=== PATIENT | male | born 1980 | race Caucasian/White ===

== ENCOUNTER 2018-11-18 12:55 | Emergency (ER) | payer BC, MEDICAID ==
[~2018-11-18] VITALS: Ht 167.6 cm; Wt 84.8 kg
[~2018-11-18 12:55] MED LIST: NORPTMEDS CO
[2018-11-18 15:43] LABS: Basophils # (auto) 0.1 uL; Basophils % (auto) 0.8 % (0.0-2.0); Eosinophils # (auto) 0 uL; Mean Corpuscular Hgb Conc. 31.9 g/dL (32.0-36.0); Monocytes # (auto) 1.9 uL; Nucleated Red Blood Cells % 0.1 %
[2018-11-18 15:45] LABS: Eosinophils % (auto) 0.1 % (0.0-7.0); Hematocrit 40.3 % (41.0-53.0); Hemoglobin 12.9 g/dL (13.5-17.5); Lymphocytes # (auto) 2.2 uL; Lymphocytes % (auto) 13.2 % (10.0-50.0); Mean Corpuscular Hemoglobin 21.6 pg (28.0-32.0); Mean Corpuscular Volume 67.7 fL (80.0-100.0); Monocytes % (auto) 11.9 % (0.0-12.0); Platelet Count (auto) 356 10^3/uL (140-450); Red Blood Cells 5.96 10^6/uL (4.5-5.90); Red Cell Distribution Width 18.5 % (11.8-14.3); White Blood Cell 16.3 10^3/uL (4.4-10.8)
[2018-11-18 16:00] LABS: BUN/Creatinine Ratio 12.6; Calcium 9.5 mg/dL (8.5-10.1)
[2018-11-18 16:03] LABS: Bilirubin, Total 0.7 mg/dL (0.2-1.0); Total Protein 9.6 g/dL (6.4-8.2)
[2018-11-18 16:19] LABS: Potassium 3.6 mmol/L (3.5-5.1)
[2018-11-18] MEDS ORDERED: CLINDAMYCIN 600MG IV 50 ML IV ONE (17:30)
[2018-11-18] MEDS ORDERED: cefTRIAXone 1GM/50ML D5W 50 ML IV ONE (17:30)
[2018-11-18] MEDS ORDERED: SODIUM CHLORIDE 0.9% 1,000 ML IV ONE ×3 (17:30→21:00)
[2018-11-18] MEDS ORDERED: HYDROcodone-ACET 10/325MG TAB PO ONE (18:30)
[2018-11-18 18:41] LABS: Lactic Acid w/Reflex 2.8 mmol/L (0.4-2.0)
[2018-11-18] MEDS ORDERED: ACETAMINOPHEN 325 MG TAB PO ONE (19:00)
[2018-11-18 22:15] VITALS: BP 122/77
== END 2018-11-18 22:43 | disposition home or self-care (01) ==
LOC: ER 12:55
DX: L03.115 Cellulitis of right lower limb (principal); A41.9 Sepsis, unspecified organism; J45.909 Unspecified asthma, uncomplicated; I10 Essential (primary) hypertension; E11.9 Type 2 diabetes mellitus without complications
CPT/HCPCS: 36415; 73700; 80053; 82962; 83605; 85025; 87040; 94761; 96365; 96366; 96368; 99285; J0696; J3490; J7030

== ENCOUNTER 2024-10-27 10:38 | Inpatient (IN) | payer BC, MEDICAID ==
[~2024-10-27] VITALS: Ht 167.6 cm; Wt 83.9 kg
[2024-10-27 12:00] LABS: Monocytes # (auto) 1.2 10 ^3/uL (0-1.3); Neutrophils # (auto) 8.2 10 ^3/uL (1.6-8.6); Nucleated Red Blood Cells % 0.1 %; Red Cell Distribution Width 15.1 % (11.8-14.3)
[2024-10-27 12:02] LABS: Basophils # (auto) 0.1 10 ^3/uL (0-0.2); Basophils % (auto) 0.5 % (0.0-2.0); Chloride 102 mmol/L (98-107); Eosinophils # (auto) 0 10 ^3/uL (0-0.8); Eosinophils % (auto) 0.4 % (0.0-7.0); Hematocrit 43.7 % (41.0-53.0); Lymphocytes # (auto) 1.9 10 ^3/uL (0.4-5.4); Lymphocytes % (auto) 16.6 % (10.0-50.0); Mean Corpuscular Hemoglobin 24.2 pg (28.0-32.0); Mean Corpuscular Volume 75.6 fL (80.0-100.0); Monocytes % (auto) 10.3 % (0.0-12.0); Neutrophils % (auto) 72.2 % (37.0-80.0); Platelet Count (auto) 184 10^3/uL (140-450); Potassium 3.9 mmol/L (3.5-5.1); Red Blood Cells 5.78 10^6/uL (4.5-5.90); White Blood Cell 11.4 10^3/uL (4.4-10.8)
[2024-10-27 12:03] LABS: Anion Gap 10 (5-15); Calcium 9.9 mg/dL (8.7-10.4); Carbon Dioxide 24 mmol/L (20-31)
[2024-10-27 12:04] LABS: Sodium 136 mmol/L (136-145)
[2024-10-27 12:08] LABS: BUN/Creatinine Ratio 12.2 (10.0-20.0); Blood Urea Nitrogen 11 mg/dL (9-23)
[2024-10-27 12:09] LABS: Glucose 269 mg/dL (74-106)
[2024-10-27] MEDS ORDERED: VANCOMYCIN PER PHARMACY 0 MG IV SCH (13:00)
--- NOTE | 2024-10-27 13:01 | ED.PDOC ---
History of Present Illness(SKN HPI Comments This is a pleasant 44-year-old gentleman with a pertinent MHx of diabetes who was currently on glipizide and metformin who presents with a chief complaint of erythema, warmth, pain to the right lower extremity predominantly located to the right calf region. Symptoms started on Friday (three days ago) near the right groin and patient reports redness descended down the right lower extremity. Patient then went to [facility] and was discharged same day on amoxicillin and he is currently on day three however patient reports no improvement. Complains of pain fevers chills that are worse at bedtime. Unable to get adequate relief with [id number] Tylenol Motrin. Chief Complaint: Cellulitis Time Seen by MD: 10:53 Primary Care Provider: NONE History of Present Illness: Nurses Notes, Medications, Allergies Allergies: Coded Allergies: NO KNOWN ALLERGIES (Unverified , 09/14/13) Home Meds Reported Medications Glipizide (Glipizide) 5 Mg Tab, 1 TAB PO BID, #60 TAB 3 Refills 10/27/24 No Reported Medication (NO REPORTED MEDICATION) Ea, 0 CO UNK, EA PATIENT HAS NO REPORTED MEDICATIONS 09/14/13 Information Source: Patient Mode of Arrival: Ambulatory Past Medical History PAST MEDICAL HISTORY: Asthma Family History Family History: No family hx of DM, No family hx of HTN Social History Smoker: Non-Smoker Alcohol: Rarely Drugs: Denies Drug Use Lives In: Home All Other Systems: Reviewed and Negative (Per HPI) Physical Exam General Appearance: No Apparent Distress, Normal HEENT: Normal ENT Inspection, Pharynx Normal, TMs Normal Neck: Full Range of Motion, Non-Tender, Normal, Normal Inspection Respiratory: Chest Non-Tender, Lungs Clear, No Accessory Muscle Use, No Respiratory Distress, Normal Breath Sounds Cardiovascular: No Edema, No JVD, No Murmur, No Gallop, Normal Peripheral Pulses, Regular Rate/Rhythm Breast Exam: Deferred Gastrointestinal: No Organomegaly, Non Tender, No Pulsatile Mass, Normal Bowel Sounds, Soft Genitalia: Deferred Pelvic: Deferred Rectal: Deferred Extremities: No calf tenderness, Normal capillary refill, Normal inspection, Normal range of motion, Non-tender, No pedal edema Musculoskeletal : Apperance: Normal Neurologic: Alert, 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 Was a procedure done?: No Images 1 - Fever, warmth, tenderness to palpation. Differential Diagnosis (INTG) Differential Diagnosis: Cellulitis, Other X-Ray, Labs, Meds, VS Vital Signs Date Time Temp Pulse Resp B/P (MAP) Pulse Ox O2 Delivery O2 Flow Rate FiO2 10/27/24 11:22 99.1 102 18 133/93 (106) 97 99.1 Lab Test 10/27/24 11:35 Range/Units White Blood Count 11.4 H 4.4-10.8 10^3/uL Red Blood Count 5.78 4.5-5.90 10^6/uL Hemoglobin 14.0 13.5-17.5 g/dL Hematocrit 43.7 41.0-53.0 % Mean Corpuscular Volume 75.6 L 80.0-100.0 fL Mean Corpuscular Hemoglobin 24.2 L 28.0-32.0 pg Mean Corpuscular Hemoglobin Concent 32.0 32.0-36.0 g/dL Red Cell Distribution Width 15.1 H 11.8-14.3 % Platelet Count 184 140-450 10^3/uL Mean Platelet Volume 8.5 6.9-10.8 fL Neutrophils (%) (Auto) 72.2 37.0-80.0 % Lymphocytes (%) (Auto) 16.6 10.0-50.0 % Monocytes (%) (Auto) 10.3 0.0-12.0 % Eosinophils (%) (Auto) 0.4 0.0-7.0 % Basophils (%) (Auto) 0.5 0.0-2.0 % Neutrophils # (Auto) 8.2 1.6-8.6 10 ^3/uL Lymphocytes # (Auto) 1.9 0.4-5.4 10 ^3/uL Monocytes # (Auto) 1.2 0-1.3 10 ^3/uL Eosinophils # (Auto) 0 0-0.8 10 ^3/uL Basophils # (Auto) 0.1 0-0.2 10 ^3/uL Nucleated Red Blood Cells 0.1 % Sodium Level 136 136-145 mmol/L Potassium Level 3.9 3.5-5.1 mmol/L Chloride Level 102 98-107 mmol/L Carbon Dioxide Level 24 20-31 mmol/L Anion Gap 10 5-15 Blood Urea Nitrogen 11 9-23 mg/dL Creatinine 0.90 0.700-1.30 mg/dL Glomerular Filtration Rate Calc 108 >90 mL/min BUN/Creatinine Ratio 12.2 10.0-20.0 Serum Glucose 269 H 74-106 mg/dL Calcium Level 9.9 8.7-10.4 mg/dL X-Ray, Labs, Meds, VS Comment The patient presents with s/s consistent with cellulitis Patient failed outpatient treatment The patient's workup reveals that the patient needs further evaluation and/or treatment for the above medical conditions. Patient verbalized understanding of the above and is awaiting further evaluation by the admitting service. Case discussed with medical record consultant of the day for admission and ED evaluation. IV Hep-Lock ordered. Rocephin per Pharmacy. Morphine X 1. Time of 1ST Reevaluation: 12:59 Reevaluation 1ST: Improved Patient Education/Counseling: Diagnosis, Treatment Family Education/Counseling: Diagnosis, Treatment Departure 1 Departure Time of Disposition: 13:00 Impression: Primary Impression: Cellulitis of right leg Disposition: ADMITTED INPATIENT Condition: Serious Critical Care Note Critical Care Time?: No Stability Stability form required: No Heart Score Heart Score: Heart Score Response (Comments) Value History N/A 0 EKG N/A 0 Age N/A 0 Risk Factors N/A 0 Troponin N/A 0 Total 0 DORINA COHEN NP Oct 27, 2024 13:00
[2024-10-27] MEDS ORDERED: ONDANSETRON HCL 4 MG/2 ML VIAL IV PRN (15:00)
[2024-10-27] MEDS ORDERED: ACETAMINOPHEN 325 MG TAB PO PRN (15:00)
[2024-10-27] MEDS ORDERED: GLIP5TAB21 PO (15:00)
[2024-10-27] MEDS ORDERED: DOCUSATE SOD 100 MG CAP PO PRN (15:00)
[2024-10-27] MEDS ORDERED: DEXTROSE (50%) 50ML SYRG IV PRN (15:15)
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
--- NOTE | 2024-10-27 15:35 | DVH ---
Right lower extremity venous duplex Clinical History: R/o dvt Comparison: None Technique: Duplex Doppler evaluation of the deep venous system of the right lower extremity from the common femo ral vein to the popliteal vein including color Doppler and spectral/pulsed waveform analysis was perf ormed. Findings: The common femoral vein demonstrates appropriate compressibility and waveform variability. There is compressibility/patency of the great saphenous vein at the proximal thigh. The femoral vein demonstrates appropriate compressibility and waveform variability. The deep femoral vein demonstrates appropriate compressibility and waveform variability. The popliteal vein demonstrates appropriate compressibility and waveform variability. There is normal compressibility at the tibioperoneal trunk. Impression: No right femoropopliteal venous thrombosis.
[2024-10-27] MEDS: VANCOMYCIN 1GM/200ML PM 200 ML IV SCH (15:56)
[2024-10-27] MEDS: MORPHINE SULFATE 4 MG/ML SYR/VIAL IV ONE (16:05)
[2024-10-27 16:33] VITALS: PULSE 85; RESP 19; O2SAT 96
[2024-10-27] MEDS: ACCU-CHEK COMFORT CURVE STRIP VI SCH (17:50)
[2024-10-27] MEDS: InsuLIN REG 1unit/0.01ml Soln (100units/ml) SC SCH ×2 (18:10→23:05)
[2024-10-27] MEDS: glipiZIDE 5 MG TAB PO SCH (23:04)
[2024-10-27] MEDS: HYDROcodone-ACET 5/325MG TAB PO PRN (23:18)
[2024-10-28] VITALS (8 sets, daily range): BP systolic 123–136; BP diastolic 60–88; PULSE 82–94; RESP 16–19; TEMP 98.4–99; O2SAT 93–96
[2024-10-28 06:48] LABS: Alanine Aminotransferase 29 U/L (7-40); Albumin 4.2 g/dL (3.2-4.8); Alkaline Phosphatase 63 U/L (46-116); Anion Gap 9 (5-15); Aspartate Aminotransferase 17 U/L (13-40); BUN/Creatinine Ratio 15.9 (10.0-20.0); Basophils # (auto) 0 10 ^3/uL (0-0.2); Basophils % (auto) 0.4 % (0.0-2.0); Blood Urea Nitrogen 14 mg/dL (9-23); Calcium 9.4 mg/dL (8.7-10.4); Carbon Dioxide 22 mmol/L (20-31); Chloride 104 mmol/L (98-107); Eosinophils # (auto) 0.2 10 ^3/uL (0-0.8); Hemoglobin 13.1 g/dL (13.5-17.5); Lymphocytes # (auto) 1.9 10 ^3/uL (0.4-5.4); Potassium 3.5 mmol/L (3.5-5.1); Total Protein 7.1 g/dL (5.7-8.2)
[2024-10-28 06:49] LABS: Bilirubin, Total 0.7 mg/dL (0.2-1.0); Glucose 227 mg/dL (74-106); Sodium 135 mmol/L (136-145)
[2024-10-28 06:53] LABS: Eosinophils % (auto) 1.9 % (0.0-7.0); Hematocrit 41.3 % (41.0-53.0); Lymphocytes % (auto) 20.1 % (10.0-50.0); Mean Corpuscular Hemoglobin 24.1 pg (28.0-32.0); Mean Corpuscular Hgb Conc. 31.7 g/dL (32.0-36.0); Mean Corpuscular Volume 75.9 fL (80.0-100.0); Monocytes # (auto) 0.9 10 ^3/uL (0-1.3); Monocytes % (auto) 10.1 % (0.0-12.0); Neutrophils # (auto) 6.3 10 ^3/uL (1.6-8.6); Neutrophils % (auto) 67.5 % (37.0-80.0); Nucleated Red Blood Cells % 0.1 %; Platelet Count (auto) 191 10^3/uL (140-450); Red Blood Cells 5.45 10^6/uL (4.5-5.90); White Blood Cell 9.3 10^3/uL (4.4-10.8)
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
[2024-10-28] MEDS ORDERED: ALBUTEROL SULF 2.5 MG/0.5ML(0.5%) NEB SOLN NEB PRN (13:00)
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
[2024-10-29] VITALS (9 sets, daily range): BP systolic 124–149; BP diastolic 77–93; PULSE 74–85; RESP 14–19; TEMP 97.8–98.3; O2SAT 92–97
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
[2024-10-29] MEDS: VANCOMYCIN 1.25GM/250ML 250 ML IV SCH (15:49)
[2024-10-30] VITALS (9 sets, daily range): BP systolic 108–157; BP diastolic 70–92; PULSE 72–84; RESP 16–19; TEMP 97.6–98.2; O2SAT 94–96
[2024-10-30 05:56] LABS: Eosinophils # (auto) 0.4 10 ^3/uL (0-0.8); Monocytes # (auto) 0.8 10 ^3/uL (0-1.3); Neutrophils # (auto) 5.2 10 ^3/uL (1.6-8.6); Nucleated Red Blood Cells % 0.1 %
[2024-10-30 05:59] LABS: Basophils # (auto) 0.1 10 ^3/uL (0-0.2); Eosinophils % (auto) 4.5 % (0.0-7.0); Hematocrit 38.2 % (41.0-53.0); Hemoglobin 12.3 g/dL (13.5-17.5); Lymphocytes % (auto) 23.9 % (10.0-50.0); Mean Corpuscular Hemoglobin 24.4 pg (28.0-32.0); Mean Corpuscular Hgb Conc. 32.2 g/dL (32.0-36.0); Mean Corpuscular Volume 75.7 fL (80.0-100.0); Monocytes % (auto) 9.8 % (0.0-12.0); Neutrophils % (auto) 60.8 % (37.0-80.0); Platelet Count (auto) 262 10^3/uL (140-450); Red Blood Cells 5.05 10^6/uL (4.5-5.90); Red Cell Distribution Width 14.7 % (11.8-14.3); White Blood Cell 8.5 10^3/uL (4.4-10.8)
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
[2024-10-31] VITALS (8 sets, daily range): BP systolic 119–154; BP diastolic 68–97; PULSE 73–81; RESP 15–18; TEMP 97.2–98.7; O2SAT 92–97
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
[2024-10-31] MEDS: VANCOMYCIN 1.25GM/250ML 250 ML IV SCH (16:11)
[2024-11-01 00:39] VITALS: BP 113/70; PULSE 70; RESP 17; TEMP 97.6; O2SAT 96
[2024-11-01 05:13] VITALS: BP 125/77; PULSE 61; RESP 17; TEMP 97.6; O2SAT 97
[2024-11-01 07:58] VITALS: O2SAT 96
[2024-11-01 08:00] VITALS: O2SAT 95
[2024-11-01 08:31] LABS: Hematocrit 41.3 % (41.0-53.0); Hemoglobin 13.6 g/dL (13.5-17.5); Mean Corpuscular Hemoglobin 24.4 pg (28.0-32.0); Mean Corpuscular Hgb Conc. 32.9 g/dL (32.0-36.0); Mean Corpuscular Volume 74.2 fL (80.0-100.0); Platelet Count (auto) 374 10^3/uL (140-450); Red Blood Cells 5.57 10^6/uL (4.5-5.90); White Blood Cell 7.4 10^3/uL (4.4-10.8)
[2024-11-01 08:36] LABS: Basophils % (manual) 0 (0.0-2.0); Blast Cells 0; Metamyelocytes % 0; Promyelocytes % 0
[2024-11-01 08:50] LABS: Band Neutrophils % (manual) 6; Eosinophils % (manual) 4 (0-7); Lymphocytes % (manual) 24 (10.0-50.0); Monocytes % (manual) 8 (0-12); Myelocytes % 1; Reactive Lymphocytes 5
[2024-11-01 08:52] LABS: Anisocytosis Slight; Platelet Estimate Adequate
[2024-11-01 08:58] VITALS: BP 117/84; PULSE 66; RESP 17; TEMP 97.7; O2SAT 95
[2024-11-01] MEDS ORDERED: HYDR-4902 PO (09:29)
[2024-11-01] MEDS ORDERED: CLIN1CAP70 PO (09:29)
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
[2024-11-01 09:45] VITALS: BP 117/84; PULSE 66; RESP 17; TEMP 97.7; O2SAT 95
== END 2024-11-01 12:20 | disposition home or self-care (01) | DRG 603 ==
LOC: ER 10:38 → OVERFLOW 14:58 → EAST 10-28 03:12
PROVIDERS: ADMIT Family Medicine; ATTEND Family Medicine
DX: L03.115 Cellulitis of right lower limb (principal); E44.0 Moderate protein-calorie malnutrition; E11.65 Type 2 diabetes mellitus with hyperglycemia; D72.829 Elevated white blood cell count, unspecified; J45.909 Unspecified asthma, uncomplicated; F10.90 Alcohol use, unspecified, uncomplicated; Z87.891 Personal history of nicotine dependence; Z68.29 Body mass index [BMI] 29.0-29.9, adult; Z79.899 Other long term (current) drug therapy; Z90.49 Acquired absence of other specified parts of digestive tract
CPT/HCPCS: 36415; 73700; 80048; 80053; 80202; 82565; 82962; 83036; 83605; 85007; 85025; 85027; 87040; 93971; G0378; J1815